=== PATIENT | female | born 2000 | race Two or more races ===

== ENCOUNTER 2019-06-06 18:13 | Emergency (ER) | payer SELFPAY ==
[~2019-06-06] VITALS: Ht 170.2 cm; Wt 63.5 kg
[2019-06-06 18:19] VITALS: BP 117/90
[2019-06-06] MEDS ORDERED: KETOROLAC TROMETH 60MG/2ML VIAL IM ONE (20:30)
== END 2019-06-06 20:44 | disposition home or self-care (01) ==
LOC: EDBD 18:13 → ER 18:18
DX: M54.9 Dorsalgia, unspecified (principal); Z88.0 Allergy status to penicillin
CPT/HCPCS: 72100; 96372; 99283; J1885

== ENCOUNTER 2019-07-09 10:24 | Emergency (ER) | payer OTHER ==
[~2019-07-09] VITALS: Ht 162.6 cm; Wt 68.0 kg
[2019-07-09] MEDS ORDERED: SODIUM CHLORIDE 0.9% 1,000 ML IVB ONE (10:33)
[2019-07-09] MEDS ORDERED: PANTOPRAZOLE 40 MG/10 ML VIAL INJ IV STA (10:33)
[2019-07-09] MEDS ORDERED: ONDANSETRON HCL 4 MG/2 ML VIAL IV ONE (10:45)
[2019-07-09 10:55] LABS: Basophils # (auto) 0.1 uL; Basophils % (auto) 0.8 % (0.0-2.0); Eosinophils # (auto) 0 uL; Eosinophils % (auto) 0.3 % (0.0-7.0); Hematocrit 43.2 % (36.0-46.0); Hemoglobin 14.6 g/dL (12.2-16.2); Lymphocytes # (auto) 1.6 uL; Lymphocytes % (auto) 22.6 % (10.0-50.0); Mean Corpuscular Hgb Conc. 33.8 g/dL (32.0-36.0); Mean Corpuscular Volume 88.7 fL (80.0-100.0); Monocytes # (auto) 0.3 uL; Monocytes % (auto) 4.1 % (0.0-12.0); Neutrophils % (auto) 72.2 % (37.0-80.0); Platelet Count (auto) 349 10^3/uL (140-450); Red Blood Cells 4.87 10^6/uL (4.0-5.20); Red Cell Distribution Width 13.7 % (11.8-14.3)
[2019-07-09 11:05] VITALS: BP 105/80
[2019-07-09 11:12] LABS: Albumin 4.1 g/dL (3.4-5.0); Calcium 9.4 mg/dL (8.5-10.1); Potassium 3.9 mmol/L (3.5-5.1)
[2019-07-09] MEDS ORDERED: MORPHINE SULF INJ 2 MG/ML SYRINGE 1ML IV ONE (11:15)
[2019-07-09 11:16] LABS: BUN/Creatinine Ratio 14.6; Bilirubin, Total 0.5 mg/dL (0.2-1.0); Total Protein 8.2 g/dL (6.4-8.2)
== END 2019-07-09 13:07 | disposition home or self-care (01) ==
LOC: ER 10:24
DX: R10.13 Epigastric pain (principal); R11.2 Nausea with vomiting, unspecified; Z88.0 Allergy status to penicillin
CPT/HCPCS: 36415; 74176; 80053; 81025; 83690; 85025; 96361; 96374; 96375; 99284; C9113; J2270; J2405